=== PATIENT | male | born 1995 | race American Indian/Alaskan Native ===

== ENCOUNTER 2016-08-29 21:04 | Emergency (ER) | payer SELFPAY ==
[2016-08-29 21:33] VITALS: BP 137/72
--- NOTE | 2016-08-30 01:26 | Emergency Department Report ---
HPI - General Chief Complaint: Earache Time Seen by Provider: 08/30/16 01:09 - HPI HPI: This is a 21-year-old male presents emergency Department with a 2 day history of right ear pain and fullness and sometimes he feels like there is a ringing sensation. He denies any fever, nausea, vomiting. He tried some oral antibiotics that he had at the house for one dose without any relief. He denies any past medical history. He does not have a primary care doctor. Recent travel or sick contacts at home. ED Past Medical Hx - Past Medical History Previous Medical History?: No - Surgical History Past Surgical History?: No - Social History Smoking Status: Never Smoker Substance Use Type: None - Medications Home Medications: Home Medications Medication Instructions Recorded Confirmed Last Taken Type Neomy/Polymyx B/Hc (Otic) Soln 4 drops AD TID #1 bottle 08/30/16 Unknown Rx [Cortisporin (Otic) Soln] Sulfamethoxazole/Trimethoprim 1 each PO BID #14 tablet 08/30/16 Unknown Rx [Bactrim DS TAB] ED Review of Systems ROS: Stated complaint: R EAR PAIN Other details as noted in HPI Comment: All other systems reviewed and negative Constitutional: denies: chills, fever Eyes: denies: eye pain, eye discharge, vision change ENT: ear pain. denies: throat pain Respiratory: denies: cough, shortness of breath, wheezing Cardiovascular: denies: chest pain, palpitations Gastrointestinal: denies: abdominal pain, nausea, diarrhea Genitourinary: denies: urgency, dysuria Musculoskeletal: denies: back pain, joint swelling, arthralgia Skin: denies: rash, lesions Neurological: denies: headache, weakness, paresthesias Physical Exam - Physical Exam Vital Signs: Vital Signs 08/29/16 21:32 Temperature 98.6 F Pulse Rate 77 Respiratory 18 Rate Blood Pressure 137/72 O2 Sat by Pulse 100 Oximetry Physical Exam: GENERAL: The patient is well-developed well-nourished. HEENT: Normocephalic. Atraumatic. Extraocular motions are intact. Patient has moist mucous membranes. Pupils equal reactive to light bilaterally. Normal -appearing left external ear canal and tympanic membrane. The right external canal has some diffuse inflammation and narrowing but is severely narrowed towards the medial / Proximal portion of the canal. Unable to visualize the right tympanic membrane. NECK: Supple. Trachea is midline. CHEST/LUNGS: Clear to auscultation. There is no respiratory distress noted. HEART/CARDIOVASCULAR: Regular. There is no tachycardia. There is no gallop rub or murmur. ABDOMEN: Abdomen is soft, nontender. SKIN: Skin is warm and dry. NEURO: The patient is awake, alert, and oriented. The patient is cooperative. The patient has no focal neurologic deficits. The patient has normal speech MUSCULOSKELETAL: There is no tenderness or deformity. There is no limitation range of motion. There is no evidence of acute injury. ED Course Vital Signs 08/29/16 21:32 Temperature 98.6 F Pulse Rate 77 Respiratory 18 Rate Blood Pressure 137/72 O2 Sat by Pulse 100 Oximetry ED Medical Decision Making - Medical Decision Making 21-year-old male presents with a 2 day history of right ear pain and some ringing and fullness. He appears to have an otitis externa of the right ear. Since I am unable to visualize the right tympanic membrane, he will also be treated for a potential otitis media so the patient will receive both oral antibiotics and anterolateral drops. He is given referrals for ear nose throat physician and primary care. He will return to the ER with any worsening of symptoms or any acute distress. - Differential Diagnosis otitis externa, otitis media, otalgia, eustachian tube dysfunction Critical Care Time: No Critical care attestation.: If time is entered above; I have spent that time in minutes in the direct care of this critically ill patient, excluding procedure time. ED Disposition Clinical Impression: Otalgia of right ear Otitis externa Qualifiers: Otitis externa type: unspecified type Laterality: right Chronicity: acute Qualified Code(s): H60.501 - Unspecified acute noninfective otitis externa, right ear Disposition: DISCHARGED TO HOME OR SELFCARE Is pt being admited?: No Condition: Stable Instructions: Otitis Externa (ED) Additional Instructions: Please follow-up with a primary care doctor in the next few days. I have given you a referral for a local ENT, Dr. Praveen Diamond, occasionally to follow-up regarding her ear pain. Return to the emergency department with any worsening of your symptoms or any acute distress. Prescriptions: Neomy/Polymyx B/Hc (Otic) Soln [Cortisporin (Otic) Soln] 4 drops AD TID #1 bottle Sulfamethoxazole/Trimethoprim [Bactrim DS TAB] 1 each PO BID #14 tablet Referrals: PRIMARY CARE, [Primary Care Provider] - 3-5 Days MARCELL VAZQUEZ MD [Staff Physician] - 3-5 Days [facility] [Outside] - 3-5 Days Time of Disposition: 01:29
== END 2016-08-30 01:35 | disposition home or self-care (01) ==
LOC: ED 21:04
DX: H60.501 Unspecified acute noninfective otitis externa, right ear (principal)
CPT/HCPCS: 99282